=== PATIENT | male | born 1995 | race Two or more races ===

== ENCOUNTER 2025-02-03 05:19 | Emergency (ER) | payer MEDICAID, SELFPAY ==
[2025-02-03 05:20] VITALS: BMI 33.5
[2025-02-03 05:22] VITALS: BP 157/112; PULSE 105; RESP 19; TEMP 36.6; O2SAT 97
[2025-02-03 05:23] VITALS: BMI 37.6
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
== END 2025-02-03 05:40 ==
PROVIDERS: Emergency Provider Emergency Medicine
DX: S40.812A Abrasion of left upper arm, initial encounter (principal); V89.2XXA Person injured in unspecified motor-vehicle accident, traffic, initial encounter; Y92.410 Unspecified street and highway as the place of occurrence of the external cause
CPT/HCPCS: 99281